=== PATIENT | male | born 1980 | race Caucasian/White ===

== ENCOUNTER 2016-12-06 07:44 | Inpatient (IN) | payer BC ==
--- NOTE | ~2016-12-06 | CO ---
Unit #: [id number] #: [id number] Patient: JENNY MONTEZ [id number] [address] [place], [place] [address] [id number] I MR#: [id number] NAME: JENNY MONTEZ. ROOM: 229 Age: 35 Sex: M Admission Date: 12/06/2016 : 1980 Attending Physician: Jimenez Rogers M.D. Primary Care Physician: Maik Payne M.D. Consultation Date: 12/08/2016 CONSULTATION REPORT REQUESTING PHYSICIAN Dr. Rogers. REASON FOR CONSULTATION Cellulitis of the right lower extremity. HISTORY OF PRESENT ILLNESS This is a 35-year-old white male with a previous history of MRSA infection who was admitted with pain, redness, and swelling of the right lower extremity and was started on vancomycin for presumed cellulitis. His Doppler studies ruled out DVT. He does have a history of similar episodes several months ago and does have a history of tinea pedis being treated on intermittent basis with topical antifungals. He does not have any open wounds. He denies any fever or chills. There are no red streaks. There is no open wound at this time. He does not have any history of diabetes or any other immunocompromising medical conditions. He apparently had some oral antibiotics at home in the form of amoxicillin which did not improve his cellulitis. The patient at the present time is stable. He thinks his cellulitis is improving. He does not have any fever, chills, hypotension, or systemic signs of sepsis. PAST MEDICAL HISTORY 1. History of foot abscess with MRSA. 2. History of gout. 3. I and D of foot. 4. Colonoscopy. 5. Right hand surgery. 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 He is , lives with his . He does drink 10-12 beers daily but no history of any tobacco or drug use. FAMILY HISTORY Congestive heart failure, coronary artery disease. DRUG ALLERGIES None. HOME MEDICATIONS Ibuprofen. MEDICATIONS IN HOSPITAL 1. Topical Bactroban. Unit #: [id number] #: [id number] Patient: JENNY MONTEZ 2. Clobetasol. 3. Lotrimin. 4. Vancomycin. 5. Tylenol. 6. Zofran. 7. P.r.n. Phenergan. 8. Loperamide. 9. Librium. 10. Folic acid. 11. Thiamine. 12. Lactulose. REVIEW OF SYSTEMS Systemically, right lower extremity pain, redness, and swelling without any fever or chills. He also has some itchy toes. There is no obvious abscess. He denies any abdominal pain, nausea, vomiting, diarrhea, frequency, urgency, hematuria, chest pain, headache, or mental status changes. PHYSICAL EXAMINATION GENERAL: Reveals a young white male who was rather obese. He was awake and alert, in no acute distress. VITAL SIGNS: Temperature 97.6, heart rate 73, respirations 17, blood pressure 119/70. No fever or hypotension were documented during this admission. HEENT: Unremarkable. Oral hygiene is poor though. NECK: Supple. EXTREMITIES: Both lower extremities shows signs of chronic venous stasis and trace edema. Peripheral pulses are palpable. There is tinea pedis bilaterally. There is cellulitis involving the anteromedial aspect of the right leg with mild induration. It involved the distal half of the leg. There is no evidence of lymphangitis, abscess, or open wound. Pulses are palpable. LUNGS: Clear to percussion and auscultation. HEART: Heart sounds are normal. There are no murmurs. ABDOMEN: Abdomen is felt to be soft, nontender without organomegaly, ascites. Bowel sounds are normal. NEUROLOGIC: Nonfocal. DIAGNOSTIC STUDIES LABORATORY: BMP is unremarkable. White count is 5.2, hemoglobin 12.3, platelets 233,000. Blood cultures are negative at 24 hours. Liver function tests are normal. Lactic acid 1.2. IMPRESSION Right lower extremity cellulitis superimposed on bilateral venous stasis with tinea pedis. Overall, patient is improving. There is no sign of systemic sepsis. RECOMMENDATIONS Agree with vancomycin. Will also recommend to keep her right lower extremity elevated and treat tinea pedis with local antifungal cream. We discussed about wearing compression stockings during work hours which should prevent edema since venous stasis is a risk factor for cellulitis. Plans were discussed with the patient in detail. If he continues to improve, he can be discharged home on oral Zyvox tomorrow for a total of 10-14 days depending upon the response. Unit #: [id number] #: [id number] Patient: MARVA MONTEZZACH Castillo Dictated by... Rhett Lamb TD: 12/09/2016 09:06 JOB #: [id number] CONSULTATION REPORT X Fili Rodrigues MD X CONSULTATION REPORT
--- NOTE | ~2016-12-06 | HP ---
Unit #: [id number] #: [id number] Patient: JENNY MONTEZ [id number] [facility] [address]. [place], [place] [address] [id number] MR#: [id number] NAME: JENNY MONTEZ. ROOM: 229 Age: 35 Sex: M Admission Date: 12/06/2016 : 1980 Attending Physician: Delia Santiago M.D. Primary Care Physician: Maik Payne M.D. HISTORY AND PHYSICAL CHIEF COMPLAINT Leg and bloody stool. HISTORY OF PRESENT ILLNESS The patient is a 35-year-old male with past medical history of MRSA and gout, who presented to the [facility] for evaluation of the above. The patient states that he has had a one month history of problems with his right leg. He states that initially he noticed that it was red. It has gotten increasingly red, swollen and painful. He has had chills but no documented fever. He denies any vomiting, no chest pain, no drainage. He did take some amoxicillin that he had around the house. He apparently took eight doses about dzi-smm-i-half weeks ago with no improvement. Regarding blood in the stool, the patient states that that has been for the past three weeks intermittent. He denies any abdominal pain, no diarrhea. He states that the last episode of bleeding was on December 03, 2016 and was bright red. In the emergency department a right lower extremity venous Doppler was done and negative for deep venous thrombosis. He was given vancomycin IV and sent to [facility] for admission. Regarding the blood in the stool, the patient was noted to have external hemorrhoids. His hemoglobin is 14. PAST MEDICAL HISTORY 1. Admission to [facility] April 06, 2014 for left foot abscess. He underwent incision and drainage during that admission. A wound culture from April 08, 2014 grew 4+ MRSA. 2. Gout. PAST SURGICAL HISTORY 1. Incision and drainage of left foot. 2. Colonoscopy at [facility] more than 10 years ago (no records). 3. Right hand surgery. SOCIAL HISTORY The patient lives with his . There is no tobacco use. He is a daily drinker. He states that he drunks 10 to 12 beers daily with the last drink being on the day prior to admission. He denies ever going through withdrawal. Unit #: [id number] #: [id number] Patient: JENNY MONTEZ FAMILY HISTORY Family history is notable for his dad having congestive heart failure and coronary artery disease. ALLERGIES No known allergies. HOME MEDICATIONS Ibuprofen. REVIEW OF SYSTEMS A 10-point review of systems is negative except as indicated in the HPI. The patient states that he takes ibuprofen on a daily basis. sometimes 10 to 12 of the 200 mg tablets daily. DIAGNOSTIC STUDIES IMAGING: Right lower extremity venous Doppler is negative for DVT. LABORATORY: Complete blood count notable for white blood cell count of 13, INR is 1.2. Comprehensive metabolic panel is notable for a glucose of 180, ALT is 62, alkaline phosphatase 98, lactic acid is 1. PHYSICAL EXAMINATION VITAL SIGNS: Temperature 98.3. Pulse 104. Respirations 16. Blood pressure 137/60. GENERAL: The patient is a male who is awake and alert. HEENT: The head is atraumatic. Mucous membranes are moist. NECK: Neck is supple. Trachea is midline. CARDIOVASCULAR: Regular rate and rhythm. LUNGS: Lungs are clear to auscultation bilaterally with no increased work of breathing. ABDOMEN: Abdomen is soft, nontender, with bowel sounds present in all four quadrants. ANO-RECTAL: Exam showed external hemorrhoids per ER documentation. NEUROLOGIC: The patient is awake and alert. He follows commands. PSYCHIATRIC: Mood and affect are normal. The patient is cooperative. SKIN: The right lower extremity demonstrates erythema, warmth and tenderness to palpation involving the right leg circumferentially in a background of excoriation involving the dorsum of the foot. He does have a 2+ dorsalis pedis pulse. Sensation is intact. ASSESSMENT The patient is a 35-year-old male with: 1. Right lower extremity cellulitis. 2. Sepsis. 3. History of MRSA. 4. Hematochezia with a hemoglobin of 14. If the patient's hemoglobin remains stable I suspect that this can be evaluated as an outpatient. 5. Alcohol abuse with last drink being yesterday. 6. Gout. PLAN 1. Admit to med/surg. 2. Healthy heart diet. 3. Blood cultures x2. 4. Vancomycin IV with pharmacy to dose. 5. Sepsis protocol. 6. P.r.n. Emerson. Unit #: [id number] #: [id number] Patient: JENNY MONTEZ 7. P.r.n. Zofran. 8. P.r.n. Tylenol. 9. Folic acid, thiamine and multivitamin. 10. Librium 25 mg p.o. q.6 h. with first dose now. 11. Alcohol withdrawal protocol. 12. Check magnesium level. 13. network architect manager/social work consult regarding alcohol abuse. 14. Repeat labs in the morning including magnesium. 15. Additional workup and consultants based on above. Dictated by Delia Santiago M.D. NICK/cam TD: 12/06/2016 18:13 JOB #: [id number] HISTORY AND PHYSICAL X Delia Santiago MD HISTORY AND PHYSICAL
--- NOTE | ~2016-12-06 | DS ---
Unit #: [id number] #: [id number] Patient: JENNY MONTEZ [id number] [address] [address] [id number] I MR#: [id number] NAME: JENNY MONTEZ. ROOM: 229 Age: 35 Sex: M Admission Date: 12/06/2016 : 1980 Discharge Date: 12/09/2016 Attending Physician: Jimenez Rogers M.D. Primary Care Physician: Maik Payne M.D. DISCHARGE SUMMARY DIAGNOSIS ON ADMISSION Right lower extremity cellulitis. DISCHARGE DIAGNOSES 1. Right lower extremity cellulitis. 2. Tenia pedis. 3. Excessive alcohol intake. 4. History of gout. CONSULTANTS Dr. Rodrigues in infectious disease consultation. DIAGNOSTIC DATA LABORATORY: The patient's creatinine is 0.8, sodium 135, potassium 3.7. AST and ALT are within normal limits. INR 1.2. White blood cell count 5.2, hemoglobin 12.3, platelets 233. Blood cultures did not reveal any growth so far. Lactic acid level was 1.2. HOSPITAL COURSE The patient is a 35-year-old who was admitted to the hospital with right lower extremity cellulitis. Details are as per admission history and physical. The patient was treated with IV vancomycin. The patient had lower extremity venous Dopplers that were negative in the emergency room. The patient was seen by infectious disease and his redness is much better today. He feels comfortable and wants to go home. PHYSICAL EXAMINATION VITALS: Temperature 97.7, pulse 75 per minute, respiratory rate 16 per minute, blood pressure 131/79. HEENT: No conjunctival congestion. Sclerae nonicteric. NECK: Supple. Trachea central. LUNGS: Decreased breath sounds bilaterally. There are no wheezes or crackles. HEART: Regular rate and rhythm. S1 and S2. ABDOMEN: Soft and nontender. Bowel sounds are present in all four quadrants. NEUROLOGIC: The patient is alert to person, place and time. Power is 5/5 bilaterally. Sensations are grossly intact. SKIN: Warm and dry. Right lower extremity erythema is present, which is warm to touch. DISCHARGE CONDITION Stable. Unit #: [id number] #: [id number] Patient: JENNY MONTEZ ACTIVITY As tolerated. DISCHARGE MEDICATIONS 1. Zyvox 600 mg p.o. b.i.d. for 1 week. 2. Thiamine 100 mg p.o. daily. 3. Folic acid 1 mg p.o. daily. 4. Lotrimin cream applied to both feet between the toe webs for one week. FOLLOWUP 1. The patient is advised to follow up with his primary care physician in one week and have a CBC and BMP done. 2. He was advised to follow up with [facility] regarding alcohol abuse. 3. The patient is advised to call his primary care physician or go to the emergency room if his condition changes. The plan was discussed in detail with the patient, who showed complete understanding. All of his questions were answered to his apparent satisfaction. Dictated by... Rhett Collins TD: 12/09/2016 11:34 JOB #: [id number] CC: Rhett Quan M.D. DISCHARGE SUMMARY X Jimenez Rogers MD X DISCHARGE SUMMARY
[~2016-12-06 07:44] MED LIST changes: -FOLIC ACID1 MG PO; -LOTRIMIN 1% CR30 GM EXT; -THIAMINE HCL100 M2 PO; -ZYVOX600 MG PO
[2016-12-06 08:25] LABS: BASOPHIL# 0.1 X10e3 (0-0.3); BASOPHIL% 0.6 % (0-2.5); DIFF IND NO; EOSINOPHIL# 0.2 X10e3 (0-0.7); EOSINOPHIL% 1.8 % (0.0-7.0); HEMATOCRIT 41.1 % (38.0-50.0); LYMPHOCYTE# 1.4 X10e3 (1.0-3.5); LYMPHOCYTE% 10.4 % (17.0-45.0); MEAN CELL VOLUME 86.4 FL (83-96); MEAN CORPUSCULAR HEMOGLOBIN 29.5 PG (28-34); MEAN CORPUSCULAR HGB CONC 34.1 g/dL (30-36); MEAN PLATELET VOLUME 6.5 FL (6.5-11.5); MONOCYTE# 1.3 X10e3 (0-1.0); MONOCYTE% 9.9 % (3.0-12.0); NEUTROPHIL% 77.3 % (40-75); PLATELET COUNT 265 X10e3 (140-420); RED BLOOD COUNT 4.75 X10e (3.90-5.60); RED CELL DISTRIBUTION WIDTH 14.2 % (11.0-15.5)
[2016-12-06 08:37] LABS: INR 1.2; PROTHROMBIN TIME (PATIENT) 14.1 SECONDS (9.5-12.4)
[2016-12-06 08:46] LABS: ALKALINE PHOSPHATASE 98 U/L (32-92); ALT (SGPT) 62 U/L (10-40); AST (SGOT) 36 U/L (10-42); BILIRUBIN, DIRECT 0.3 mg/dL (0.0-0.2); BILIRUBIN,INDIRECT 0.7 mg/dL (0.0-0.9); BLOOD UREA NITROGEN 12 mg/dL (9-23); CALCIUM SERUM 9.4 mg/dL (8.4-10.2); CARBON DIOXIDE 24 mmol/L (22-31); CHLORIDE 101 mmol/L (100-111); CREATININE SERUM 0.8 mg/dL (0.6-1.4); GLOM FILT RATE Estimated ABOVE60 mL/min (>60); GLUCOSE FASTING 180 mg/dL (70-110); POTASSIUM 4.1 mmol/L (3.5-5.1); PROTEIN TOTAL SERUM 8.3 g/dL (6.0-8.3); SODIUM 135 mmol/L (135-145)
[2016-12-07 05:41] LABS: HEMATOCRIT 36.6 % (38.0-50.0); HEMOGLOBIN 12.5 gm/dL (13.0-16.0); MEAN CELL VOLUME 86.6 FL (83-96); MEAN CORPUSCULAR HEMOGLOBIN 29.5 PG (28-34); MEAN CORPUSCULAR HGB CONC 34.1 g/dL (30-36); MEAN PLATELET VOLUME 6.6 FL (6.5-11.5); RED BLOOD COUNT 4.22 X10e (3.90-5.60)
[2016-12-07 06:31] LABS: ALBUMIN SERUM 3.5 g/dL (3.5-5.0); ALKALINE PHOSPHATASE 80 U/L (32-92); ALT (SGPT) 46 U/L (10-40); AST (SGOT) 25 U/L (10-42); BLOOD UREA NITROGEN 13 mg/dL (9-23); BUN/CREATININE RATIO 18.57; CALCIUM SERUM 9.1 mg/dL (8.4-10.2); CARBON DIOXIDE 25 mmol/L (22-31); CHLORIDE 101 mmol/L (100-111); CREATININE SERUM 0.7 mg/dL (0.6-1.4); GLOM FILT RATE Estimated ABOVE60 mL/min (>60); GLUCOSE FASTING 126 mg/dL (70-110); PROTEIN TOTAL SERUM 7.6 g/dL (6.0-8.3); SODIUM 137 mmol/L (135-145)
[2016-12-08 06:23] LABS: HEMATOCRIT 36.5 % (38.0-50.0); HEMOGLOBIN 12.3 gm/dL (13.0-16.0); MEAN CELL VOLUME 85.7 FL (83-96); MEAN CORPUSCULAR HEMOGLOBIN 28.8 PG (28-34); MEAN CORPUSCULAR HGB CONC 33.7 g/dL (30-36); MEAN PLATELET VOLUME 6.6 FL (6.5-11.5); RED BLOOD COUNT 4.26 X10e (3.90-5.60); RED CELL DISTRIBUTION WIDTH 13.5 % (11.0-15.5); WHITE BLOOD COUNT 5.2 X10e3 (4.0-10.5)
[2016-12-08 07:38] LABS: BLOOD UREA NITROGEN 11 mg/dL (9-23); BUN/CREATININE RATIO 13.75; CALCIUM SERUM 8.7 mg/dL (8.4-10.2); CARBON DIOXIDE 28 mmol/L (22-31); CHLORIDE 100 mmol/L (100-111); CREATININE SERUM 0.8 mg/dL (0.6-1.4); GLOM FILT RATE Estimated ABOVE60 mL/min (>60); GLUCOSE FASTING 119 mg/dL (70-110); POTASSIUM 3.7 mmol/L (3.5-5.1); SODIUM 135 mmol/L (135-145)
[2016-12-09] MEDS ORDERED: FOLIC ACID1 MG PO (13:07)
[2016-12-09] MEDS ORDERED: THIAMINE HCL100 M2 PO (13:08)
[2016-12-09] MEDS ORDERED: LOTRIMIN 1% CR30 GM EXT (13:09)
[2016-12-09] MEDS ORDERED: ZYVOX600 MG PO (13:09)
== END 2016-12-09 15:21 | disposition home or self-care (01) | DRG 603 ==
LOC: SED 07:44 → C2A 14:00
PROVIDERS: Emergency Medicine; Family Medicine; Internal Medicine
DX: L03.115 Cellulitis of right lower limb (principal); K92.1 Melena; F10.10 Alcohol abuse, uncomplicated; M10.9 Gout, unspecified; B35.3 Tinea pedis; Z86.14 Personal history of Methicillin resistant Staphylococcus aureus infection; I87.8 Other specified disorders of veins
CPT/HCPCS: 36415; 80048; 80053; 80076; 80202; 82947; 83605; 83735; 85025; 85027; 85610; 85730; 87040; 93971; 96365; 99285; J0690; J3370; J3411; J7042

== ENCOUNTER → 2016-12-06 | Outpatient (CLI) | payer BC ==
[~2016-12-06] MED LIST: CLEOCIN PO; COLCHICINE PO; COLCRYS0.6 M2 PO; FOLIC ACID1 MG PO; HYDROCODON-ACE1 EAC1 PO; IBUPROFEN; INDOMETHACIN75 MG PO; LOTRIMIN 1% CR30 GM EXT; NAPROSYN500 MG PO; NO MEDICATIONS; PERCOCET 7.5-31 EACH PO; PERCOCET5/325 PO; THIAMINE HCL100 M2 PO; ZYVOX600 MG PO
--- NOTE | ~2016-12-06 | US85 ---
[facility] A Service of [facility] & [facility] RADIOLOGY TEXT RESULTS PATIENT: JENNY MONTEZ LOCATION: SNIV : 81 UNIT #: [id number] AGE: [address]: Kodi Franco MD SEX: M ORDER DR: [id number] [place] [id number] MR#: [id number] Acc #: [id number] NAME: JENNY MONTEZ : 1980 SEX: M STUDY DATE/TIME: 12/06/2016 8:50 UNIT: SNIV ROOM: STUDY DESCRIPTION: [facility] Attending Physician: Kodi Franco M.D. Referring Physician: Kodi Franco M.D. Ordering Physician: Brendan Don M.D. Primary Care Physician: Maik Payne M.D. MEDICAL IMAGING REPORT This report is preliminary unless electronic signature is present. EXAM Right lower extremity venous ultrasound. HISTORY Right leg pain, redness, swelling for one month. FINDINGS TECHNIQUE Venous ultrasound examination of the right lower extremity was performed using grayscale, spectral Doppler and color flow Doppler imaging. FINDINGS The examination is negative. There is no evidence of right lower extremity deep venous thrombus from the groin to the lower calf. Visualized greater saphenous vein is also patent. IMPRESSION Negative examination. No evidence of right lower extremity deep venous thrombosis. Dictated by... Chapin Newsome M.D. THIS IS AN ELECTRONICALLY VERIFIED REPORT Chapin Newsome M.D. at 12/16/2016 4:25 PM Aris TD: 12/06/2016 11:47 JOB #: [id number] MEDICAL IMAGING REPORT
== END | disposition home or self-care (01) ==
LOC: SNIV 08:50
DX: M79.604 Pain in right leg (principal); M79.89 Other specified soft tissue disorders
CPT/HCPCS: 93971

== ENCOUNTER 2017-05-01 13:58 | Emergency (ER) | payer BC ==
[~2017-05-01] VITALS: Ht 175.3 cm; Wt 113.4 kg
[~2017-05-01 13:58] MED LIST changes: +FOLIC ACID1 MG PO; +LOTRIMIN 1% CR30 GM EXT; +THIAMINE HCL100 M2 PO; +ZYVOX600 MG PO
== END 2017-05-01 15:30 | disposition left against medical advice (07) ==
LOC: CED 13:58
DX: Z53.21 Procedure and treatment not carried out due to patient leaving prior to being seen by health care provider (principal)

== ENCOUNTER 2017-05-01 15:09 | Emergency (ER) | payer BC ==
[~2017-05-01] VITALS: Ht 175.3 cm; Wt 113.4 kg
--- NOTE | ~2017-05-01 | CR21 ---
[facility] A Service of [facility] & [facility] RADIOLOGY TEXT RESULTS PATIENT: JENNY MONTEZ LOCATION: SED : 81 UNIT #: [id number] AGE: [address]: Gena Bae MD SEX: M ORDER DR: [id number] [place] [id number] MR#: [id number] Acc #: [id number] NAME: JENNY MONTEZ. : 1980 SEX: M STUDY DATE/TIME: 05/01/2017 16:04 UNIT: SED ROOM: STUDY DESCRIPTION: CR Ankle Min 3 Views Rt Attending Physician: Gena Bae M.D. Ordering Physician: Gena Bae M.D. Primary Care Physician: Maik Payne M.D. MEDICAL IMAGING REPORT This report is preliminary unless electronic signature is present. EXAM Right ankle series, 05/01/2017 COMPARISON Right foot series dated 05/08/2013 HISTORY Slipped in shower on Tuesday night with swollen knee and sprained ankle. FINDINGS Four images of 3 views of the right ankle were obtained. There is expected bony alignment, architecture and mineralization without acute displaced fracture or dislocation. No focal asymmetrical significant soft tissue swelling could be discerned in this modality. Dictated by... Tatyana Espana M.D. THIS IS AN ELECTRONICALLY VERIFIED REPORT Tatyana Espana M.D. at 05/02/2017 7:33 PM CPR/ljd TD: 05/02/2017 04:42 JOB #: [id number] MEDICAL IMAGING REPORT Page 1 of 1
--- NOTE | ~2017-05-01 | US85 ---
[facility] A Service [facility] RADIOLOGY TEXT RESULTS PATIENT: JENNY MONTEZ LOCATION: SED : 81 UNIT #: [id number] AGE: [address]: Gena Bae MD SEX: M ORDER DR: [id number] [place] [id number] E MR#: [id number] Acc #: [id number] NAME: JENNY MONTEZ. : 1980 SEX: M STUDY DATE/TIME: 05/01/2017 16:26 UNIT: SED ROOM: STUDY DESCRIPTION: [facility] Attending Physician: Gena Bae M.D. Ordering Physician: Gena Bae M.D. Primary Care Physician: Maik Payne M.D. MEDICAL IMAGING REPORT This report is preliminary unless electronic signature is present. EXAM Right lower extremity venous Doppler HISTORY 36-year-old male sprained ankle 2 days ago and has had swelling and redness in right lower extremity since. COMPARISON Right lower extremity venous Doppler 12/06/2016 TECHNIQUE Venous ultrasound examination of the right lower extremity was performed using grayscale, spectral Doppler and color flow Doppler imaging. FINDINGS The examination is negative. There is no evidence of right lower extremity deep venous thrombus from the groin to the lower calf. Visualized greater saphenous vein is also patent. IMPRESSION Negative examination. No evidence of right lower extremity deep venous thrombosis. Dictated by... Jared Griffin M.D. THIS IS AN ELECTRONICALLY VERIFIED REPORT Jared Griffin M.D. at 05/02/2017 7:15 AM MARA/tod [facility] A Service [facility] RADIOLOGY TEXT RESULTS PATIENT: JENNY MONTEZ LOCATION: SED : 81 UNIT #: [id number] AGE: [address]: Gena Bae MD SEX: M ORDER DR: TD: 05/02/2017 05:18 JOB #: [id number] MEDICAL IMAGING REPORT Page 1 of 1
[2017-05-01 16:28] LABS: BASOPHIL# 0.1 X10e3 (0-0.3); BASOPHIL% 0.8 % (0-2.5); EOSINOPHIL# 0.2 X10e3 (0-0.7); EOSINOPHIL% 1.5 % (0.0-7.0); HEMATOCRIT 42.1 % (38.0-50.0); HEMOGLOBIN 14.4 gm/dL (13.0-16.0); LYMPHOCYTE# 1.7 X10e3 (1.0-3.5); LYMPHOCYTE% 13.6 % (17.0-45.0); MEAN CELL VOLUME 84.9 FL (83-96); MEAN CORPUSCULAR HGB CONC 34.2 g/dL (30-36); MEAN PLATELET VOLUME 6.7 FL (6.5-11.5); MONOCYTE# 1.3 X10e3 (0-1.0); MONOCYTE% 10.1 % (3.0-12.0); NEUTROPHIL# 9.2 X10e3 (1.5-7.1); PLATELET COUNT 199 X10e3 (140-420); RED BLOOD COUNT 4.96 X10e (3.90-5.60); RED CELL DISTRIBUTION WIDTH 14.9 % (11.0-15.5); WHITE BLOOD COUNT 12.4 X10e3 (4.0-10.5)
[2017-05-01 16:31] LABS: DIFF IND NO
[2017-05-01 17:00] LABS: BUN/CREATININE RATIO 16.25; CALCIUM SERUM 9.6 mg/dL (8.4-10.2); CREATININE SERUM 0.8 mg/dL (0.6-1.4); GLOM FILT RATE Estimated 115.8 mL/min (>60)
== END 2017-05-01 18:54 | disposition home or self-care (01) ==
LOC: SED 15:09
PROVIDERS: Student in an Organized Health Care Education/Training Program
DX: L03.115 Cellulitis of right lower limb (principal)
CPT/HCPCS: 36415; 73610; 80048; 85025; 86140; 93971; 96365; 96366; 96375; 99284; J1885